=== PATIENT | male | born 1945 | race Caucasian/White ===

== ENCOUNTER 2018-12-09 10:23 | Day surgery (SDC) | payer OTHER ==
[~2018-12-09] VITALS: Ht 170.2 cm; Wt 127.3 kg
[~2018-12-09 10:23] MED LIST: 24HOUR ALLERGY10 MG PO; CARDURA PO; COSENTYX P150 MG/1 M SC; EUTHYROX100 MCG PO; FINA5 PO; Hytrin2 MG PO; LISI20 PO; METTREX2.5 PO; MOTION RELIEF25 MG PO; Omeprazole20 M1 PO; SUCR1 PO; Stool Softener240 MG PO
[2018-12-09] MEDS ORDERED: BETA.05TCA (11:20)
[2018-12-09] MEDS ORDERED: Flonase 0.05% N16 GM (11:21)
[2018-12-09] MEDS ORDERED: CALCIPOTRIENE60 G1 (11:21)
[2018-12-09] MEDS ORDERED: OMEPRAZOLE20 MG (11:22)
[2018-12-09] MEDS ORDERED: METF500 (11:22)
[2018-12-09] MEDS ORDERED: FURO20 (11:22)
[2018-12-09] MEDS ORDERED: Zantac150 MG (11:22)
[2018-12-09] MEDS ORDERED: METR59TL (11:22)
== END 2018-12-09 13:15 | disposition home or self-care (01) ==
LOC: ORSCSDS 10:23
PROVIDERS: Internal Medicine Gastroenterology
PROC: 0DB58ZX Excision of Esophagus, Via Natural or Artificial Opening Endoscopic, Diagnostic (ICD-10-PCS; principal; 2018-12-09 11:45)
PROC: 0DB78ZX Excision of Stomach, Pylorus, Via Natural or Artificial Opening Endoscopic, Diagnostic (ICD-10-PCS; principal; 2018-12-09 11:45)
PROC: 0DJD8ZZ Inspection of Lower Intestinal Tract, Via Natural or Artificial Opening Endoscopic (ICD-10-PCS; principal; 2018-12-09 11:45)
DX: K30 Functional dyspepsia (principal); Z12.11 Encounter for screening for malignant neoplasm of colon; Z86.010 Personal history of colon polyps; K57.30 Diverticulosis of large intestine without perforation or abscess without bleeding; K64.8 Other hemorrhoids; R94.8 Abnormal results of function studies of other organs and systems; E11.9 Type 2 diabetes mellitus without complications; I10 Essential (primary) hypertension; K21.9 Gastro-esophageal reflux disease without esophagitis; F17.210 Nicotine dependence, cigarettes, uncomplicated; E66.01 Morbid (severe) obesity due to excess calories; Z68.41 Body mass index [BMI] 40.0-44.9, adult; Z79.899 Other long term (current) drug therapy
CPT/HCPCS: 43239; G0105; 82947; 88305; 88341; 88342; J2704; J7120

== ENCOUNTER 2021-07-18 13:57 | Day surgery (SDC) | payer OTHER ==
[~2021-07-18] VITALS: Ht 170.2 cm; Wt 132.2 kg
[~2021-07-18 13:57] MED LIST changes: +BETA.05TCA; +CALCIPOTRIENE60 G1; +FURO20; +Flonase 0.05% N16 GM; +METF500; +METR59TL; +OMEPRAZOLE20 MG; +Zantac150 MG
--- NOTE | 2021-07-18 16:04 | NUR ---
07/18/21 1604 Corina Corey LIDOCAINE 2% MIXED W/ BUPIVACAINE 0.5% 1:200,000 1:1 FOR INJECTION AT OPSITE. 6 MLS INJECTED.
== END 2021-07-18 17:06 | disposition home or self-care (01) ==
LOC: ORSCSDS 13:57
PROVIDERS: Ophthalmology
PROC: 08BP0ZZ Excision of Left Upper Eyelid, Open Approach (ICD-10-PCS; principal; 2021-07-18 15:30)
PROC: 08SR0ZZ Reposition Left Lower Eyelid, Open Approach (ICD-10-PCS; principal; 2021-07-18 15:30)
PROC: 08BN0ZZ Excision of Right Upper Eyelid, Open Approach (ICD-10-PCS; principal; 2021-07-18 15:30)
DX: H02.423 Myogenic ptosis of bilateral eyelids (principal); H57.813 Brow ptosis, bilateral; H02.15 Paralytic ectropion of eyelid; G51.32 Clonic hemifacial spasm, left; I10 Essential (primary) hypertension; E11.9 Type 2 diabetes mellitus without complications; E03.9 Hypothyroidism, unspecified; Z79.84 Long term (current) use of oral hypoglycemic drugs; J45.909 Unspecified asthma, uncomplicated; G47.33 Obstructive sleep apnea (adult) (pediatric); F17.210 Nicotine dependence, cigarettes, uncomplicated; K76.0 Fatty (change of) liver, not elsewhere classified; E66.01 Morbid (severe) obesity due to excess calories; Z68.42 Body mass index [BMI] 45.0-49.9, adult; I25.2 Old myocardial infarction; Z79.899 Other long term (current) drug therapy
CPT/HCPCS: 82947; A9270; J0171; J2704; J7040

== ENCOUNTER 2022-01-17 05:41 | Inpatient (IN) | payer OTHER ==
[2022-01-22] MEDS ORDERED: HYDRA25 PO (11:20)
[2022-01-22] MEDS ORDERED: HYDCHL25 PO (11:21)
[2022-01-22] MEDS ORDERED: VISBIOME 112.51 EACH PO (11:22)
[2022-01-22] MEDS ORDERED: CEPH500 PO (11:23)
== END 2022-01-22 12:14 | disposition home health service (06) | DRG 915 ==
DX: T78.3XXA Angioneurotic edema, initial encounter (principal); J15.5 Pneumonia due to Escherichia coli; J96.01 Acute respiratory failure with hypoxia; J96.02 Acute respiratory failure with hypercapnia; E87.1 Hypo-osmolality and hyponatremia; E87.4 Mixed disorder of acid-base balance; N17.9 Acute kidney failure, unspecified; Z68.41 Body mass index [BMI] 40.0-44.9, adult; Z20.822 Contact with and (suspected) exposure to COVID-19; L40.9 Psoriasis, unspecified; I44.0 Atrioventricular block, first degree; I95.9 Hypotension, unspecified; E66.01 Morbid (severe) obesity due to excess calories; E78.5 Hyperlipidemia, unspecified; E03.9 Hypothyroidism, unspecified; F17.210 Nicotine dependence, cigarettes, uncomplicated; I12.9 Hypertensive chronic kidney disease with stage 1 through stage 4 chronic kidney disease, or unspecified chronic kidney disease; N18.30 Chronic kidney disease, stage 3 unspecified; T46.4X5A Adverse effect of angiotensin-converting-enzyme inhibitors, initial encounter; E11.22 Type 2 diabetes mellitus with diabetic chronic kidney disease; K21.9 Gastro-esophageal reflux disease without esophagitis; Z90.49 Acquired absence of other specified parts of digestive tract; Z88.8 Allergy status to other drugs, medicaments and biological substances; Z79.899 Other long term (current) drug therapy; X58.XXXA Exposure to other specified factors, initial encounter

== ENCOUNTER 2022-04-04 09:51 | Observation (INO) | payer OTHER ==
[~2022-04-04] VITALS: Ht 170.2 cm; Wt 129.0 kg
[~2022-04-04 09:51] MED LIST changes: +CEPH500 PO; +FLUT.05NI; -Flonase 0.05% N16 GM; +HYDCHL25 PO; +HYDRA25 PO; +VISBIOME 112.51 EACH PO
[2022-04-04] MEDS ORDERED: FURO20 PO (10:26)
[2022-04-04] MEDS ORDERED: METF500 PO (10:26)
[2022-04-04] MEDS ORDERED: DOXAZOSIN MESYLA4 M2 PO (10:27)
[2022-04-04] MEDS ORDERED: FINA5 PO (10:27)
--- NOTE | 2022-04-04 16:33 | NUR ---
SHIFT SUMMARY [facility] @1307. PER HC RN, PT RECEIVED A DUAL CHAMBER PACE MAKER WITH LOW RATE SET AT 60. 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 PT A/O X4 UPON ARRIVAL. SITE HAS MINIMAL SWELLING. ICE PACK PROVIDED. PT C/O MINIMAL PAIN IN AREA. PER PRODUCTION OPERATIONS MANAGER, PT NOT TO HAVE SLING ON LEFT SHOULDER IN ORDER TO DECREASE RISK OF A FROZEN SHOULDER FROM LIMITED MOVEMENT. PT HR IN THE 70'S. SPO2 >92% ON RA. PT SLIGHTLY HTN AND STATES IS NORMAL FOR HIM. REPORT GIVEN TO KEVIN CORONA TO ASSUME CARE AT THIS TIME.
--- NOTE | 2022-04-04 18:50 | NUR ---
NO CHANGE IN PT CONDITION SINCE ASSUMING CARE OF PT. PT ABLE TO USE CALL LIGHT FOR NEEDS, CALL LIGHT IN REACH, WILL CONTINUE TO MONITOR AND GIVE REPORT TO NOC SHIFT RN.
--- NOTE | 2022-04-04 20:20 | NUR ---
ASSUMPTION OF CARE THIS RN ASSUMED CARE OF PATIENT AT 1900. REPORT TAKEN FROM CHLOE BROWN. PATIENT WITH STABLE VITALS AT SHIFT CHANGE. AV PACED WITH HR 70-80'S. PATIENT REFUSING TO USE SLING AT THIS TIME. VERBALIZED UNDERSTANDING RESTRICTIONS FOR MOVEMENT OF LEFT ARM. LEFT CHEST WALL DRESSING IS C/D/I, MILD INFLAMMATION NOTED AND WAS PREVIOUSLY REPORTED BY LAST RN, PATIENT REPORTS TENDERNESS AT SITE AND IS USING ICE PACK NEEDED. NO SUBCUTANEOUS EMPHYSEMA NOTED BY THIS RN. PULSES STRONG T/O. PATIENT ALERT AND ORIENTED FULLY AND ABLE TO MAKE NEEDS KNOWN. BED IN LOWEST POSITION AND CALL LIGHT WITHIN REACH.
--- NOTE | 2022-04-05 05:21 | NUR ---
SHIFT SUMMARY NO ACUTE CHANGES DURING THIS SHIFT. PATIENT CONTINUES TO HAVE OCCASIONAL TENDERNESS IN LEFT CHEST WALL PACER SITE. CONTINUES TO HAVE SWELLING WITH NO SIGNIFICANT CHANGES SINCE BEGINNING OF SHIFT. MINIMAL DRAINAGE NOTED. REFUSING SLING AT THIS TIME. REINFORCEMENT OF LEFT ARM RESTRICTIONS WITH PATIENT VERBALIZING UNDERSTANDING. BP STABLE. AFEBRILE. AV PACED RHYTHM WITH HR 70-90'S.; FREQUENT PVC'S NOTED. ABLE TO MAKE NEEDS KNOWN. BED IN LOWEST POSITION AND CALL LIGHT WITHIN REACH. THIS RN WILL CONTINUE TO MONITOR UNTIL SHIFT CHANGE AT 0700.
--- NOTE | 2022-04-05 09:48 | NUR ---
care assumption this rn assumed care at 0700. vss. tele paced 60-70s. patient is alert and oriented x4. patient reports no pain. patient reports no chest pain/pressure. patient left chest s/p pacer has mild swelling and inflammation, but dressing is clean dry and intact. patient reports no shortness of breath. clear lung sounds. patient abdomen is soft nontender and active. patient is indepdent in ADL's. patient uses call light appropriately. MD in to see patient this am and discussed discharge. discharge orders in. this rn went over post pacer education and restrictions. this rn went over appointments to follow up with. patient verbalized understanding. awaiting completion of discharge packet. plan of care is up to date. call light within reach.
--- NOTE | 2022-04-05 11:13 | NUR ---
discharge This RN went over discharge education, medications, and follow up appointments. Patient verbalized understanding and repeated the education back to this RN. Patient had all belongings and education with patient when leaving the unit. Patient left via wheelchair and in no distress.
== END 2022-04-05 10:41 | disposition home or self-care (01) ==
LOC: MHTC 09:51 → PCU 11:55 → MHTC 13:27 → PCU 13:27
PROVIDERS: ADMIT Internal Medicine Cardiovascular Disease
DX: I44.2 Atrioventricular block, complete (principal); I49.5 Sick sinus syndrome; I12.9 Hypertensive chronic kidney disease with stage 1 through stage 4 chronic kidney disease, or unspecified chronic kidney disease; E11.22 Type 2 diabetes mellitus with diabetic chronic kidney disease; N18.9 Chronic kidney disease, unspecified; E03.9 Hypothyroidism, unspecified; G47.33 Obstructive sleep apnea (adult) (pediatric); E78.5 Hyperlipidemia, unspecified; K21.9 Gastro-esophageal reflux disease without esophagitis; T78.3XXA Angioneurotic edema, initial encounter; L40.9 Psoriasis, unspecified; Z79.899 Other long term (current) drug therapy
CPT/HCPCS: 33208; 71046; 99152; 99153; A9270; C1785; C1898; J0690; J1644; J2250; J3010; J7040; Q9967